=== PATIENT | male | born 1985 | race Caucasian/White ===

== ENCOUNTER 2019-02-24 16:34 | Emergency (ER) | payer BC, OTHER ==
[2019-02-24 16:54] VITALS: BP 124/75
[2019-02-24] MEDS ORDERED: Dexamethasone IV* 4 MG/ML 1 ML (4 MG) IV SLOW PU ONE (17:03)
[2019-02-24] MEDS ORDERED: Acetaminophen ADULT LIQ* 650 MG/20.3 ML UDC PO ONE (17:04)
--- NOTE | 2019-02-24 17:05 | UC ---
Throat Pain/Nasal [place] HPI - HPI Summary HPI Summary: 33-year-old male comes in with a chief complaint of sore throat and fever. Patient reports started yesterday with a sore throat it's been getting worse progressively since then. He's been sleeping a lot. When he woke up this afternoon his throat was even more swollen. It's worse on the left than the right. Pain is worse when he is trying to swallow. He reports that he can breathe fine and his voice is normal on initial examination. He also does have a fever. - History of Current Complaint Chief Complaint: UCGeneralIllness Stated Complaint: ST/DIZZY/NAUSEA Time Seen by Provider: 02/24/19 16:57 Pain Intensity: 7 - Allergies/Home Medications Allergies/Adverse Reactions: Allergies Allergy/AdvReac Type Severity Reaction Status Date / Time amoxicillin [From Augmentin] Allergy Unknown as a child Verified 02/24/19 16:54 cefaclor [From Ceclor] Allergy Unknown as a child Verified 02/24/19 16:54 clavulanic acid Allergy Unknown as a child Verified 02/24/19 16:54 [From Augmentin] Home Medications: Home Medications NK [No Home Medications Reported] 02/24/19 [History Confirmed 02/24/19] PMH/Surg Hx/FS Hx/Imm Hx Previously Healthy: Yes - Surgical History Surgical History: None - Family History Known Family History: Positive: Non-Contributory - Social History Alcohol Use: Occasionally Substance Use Type: None Smoking Status (MU): Light Every Day Tobacco Smoker Type: Cigarettes Amount Used/How Often: 1/2 ppd Review of Systems All Other Systems Reviewed And Are Negative: Yes Constitutional: Positive: Fever, Chills, Fatigue Skin: Positive: Negative Eyes: Positive: Negative ENT: Positive: Sore Throat, Other - SEE HPI Respiratory: Negative: Shortness Of Breath Cardiovascular: Positive: Negative Gastrointestinal: Positive: Negative Motor: Positive: Negative Neurovascular: Positive: Negative Musculoskeletal: Positive: Negative Neurological: Positive: Negative Psychological: Positive: Negative Is Patient Immunocompromised?: No Physical Exam Triage Information Reviewed: Yes Appearance: Well-Nourished, Ill-Appearing - MILD, Pain Distress - MILD WITH SWALLOWING Vital Signs: Initial Vital Signs Temp 102.5 F 02/24/19 16:49 Pulse 106 02/24/19 16:49 Resp 17 02/24/19 16:49 BP 124/75 02/24/19 16:49 Pulse Ox 99 02/24/19 16:49 Vital Signs Reviewed: Yes Eye Exam: Normal Eyes: Positive: Conjunctiva Clear ENT: Positive: Pharyngeal erythema, Nasal congestion, TMs normal, Tonsillar swelling - LEFT TONSIL LARGER THAN RIGHT AND CROSSES THE MID LINE. THE RIGHT TONSIL IS 2+, Trismus. Negative: Muffled voice, Hoarse voice Neck: Positive: Supple, Other: - LEFT ANTERIOR NECK IS TENDER TO PALPATION Respiratory: Positive: Lungs clear, Normal breath sounds, No respiratory distress. Negative: Stridor Cardiovascular: Positive: Tachycardia Musculoskeletal Exam: Normal Musculoskeletal: Positive: Strength Intact, ROM Intact Neurological: Positive: Alert, Muscle Tone Normal Psychological Exam: Normal Psychological: Positive: Age Appropriate Behavior Skin Exam: Normal Throat Pain/Nasal Course/Dx - Course Course Of Treatment: Due to the swelling in the back of the throat I recommended immediate evaluation in the emergency department. Patient declined ambulance transport. He has no stridor at this time. His voice is normal at this time. I discussed the case with the [place] emergency room medical provider [place]. The patient is going to the emergency department by POV with his mother driving the vehicle. Here in clinic we gave Decadron 10 mg by mouth liquid and acetaminophen 975 mg by mouth liquid. - Differential Dx/Diagnosis Provider Diagnosis: Pharyngitis, Fever Discharge - Sign-Out/Discharge Documenting (check all that apply): Patient Departure All imaging exams completed and their final reports reviewed: No Studies - Discharge Plan Condition: Stable Disposition: HOME-RECOMMEND TO ED Referrals: [facility] [place] [facility]YSICIAN REFERRAL [Outside] Additional Instructions: GO DIRECTLY TO THE EMERGENCY DEPARTMENT FOR FURTHER EVALUATION. - Billing Disposition and Condition Condition: STABLE Disposition: Home-Recommend to ED
== END 2019-02-24 17:21 | disposition home health service (06) ==
LOC: UCCORT 16:34
DX: J02.9 Acute pharyngitis, unspecified (principal); R50.9 Fever, unspecified; F17.210 Nicotine dependence, cigarettes, uncomplicated; Z88.0 Allergy status to penicillin; Z88.8 Allergy status to other drugs, medicaments and biological substances
CPT/HCPCS: 99202; A9270-GY; G0463; J1100